=== PATIENT | male | born 1990 | race Caucasian/White ===

== ENCOUNTER 2017-06-16 12:00 | Emergency (ER) | payer OTHER ==
[2017-06-16] MEDS ORDERED: NS 1,000 ML IV ONE ×2 (12:15→16:20)
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
[2017-06-16] MEDS ORDERED: fentaNYL 100 MCG/2 ML INJ ONE (14:09)
[2017-06-16] MEDS ORDERED: fentaNYL 100 MCG/2 ML INJ IVP ONE (14:10)
[2017-06-16 15:31] VITALS: TEMP 98.2
[2017-06-16 17:57] VITALS: BP 121/82; PULSE 66; RESP 17; O2SAT 96
== END 2017-06-16 18:59 | disposition home or self-care (01) ==
PROC: 0PSLXZZ Reposition Left Ulna, External Approach (ICD-10-PCS; principal; 2017-06-16)
DX: S02.82XA Fracture of other specified skull and facial bones, left side, initial encounter for closed fracture (principal); S52.202A Unspecified fracture of shaft of left ulna, initial encounter for closed fracture; V19.3XXA Pedal cyclist (driver) (passenger) injured in unspecified nontraffic accident, initial encounter; Y92.410 Unspecified street and highway as the place of occurrence of the external cause; Y93.55 Activity, bike riding; E86.9 Volume depletion, unspecified
CPT/HCPCS: 96374; J3010

== ENCOUNTER 2017-06-30 14:05 | Day surgery (SDC) | payer OTHER ==
[2017-06-30] MEDS ORDERED: ceFAZolin 2 GM/SWFI 2 GM/20 ML SYR IVP ONE (14:07)
[2017-06-30] MEDS ORDERED: LR 1,000 ML IV ONE (14:35)
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
[2017-06-30] MEDS ORDERED: MIDAZOLAM 2 MG/2 ML VIAL IVP ONE (14:44)
[2017-06-30] MEDS ORDERED: fentaNYL 250 MCG/5 ML INJ ONE (14:50)
[2017-06-30] MEDS ORDERED: PROPOFOL 200 MG/20 ML VIAL ONE (14:50)
[2017-06-30] MEDS ORDERED: ROCURONIUM 50 MG/5 ML VIAL ONE (14:51)
[2017-06-30] MEDS ORDERED: DEXAMETHASONE 4 MG/ML VIAL ONE ×2 (14:51)
[2017-06-30] MEDS ORDERED: BUPIVACAINE 0.5% 30 ML SDV ONE (15:14)
--- NOTE | 2017-06-30 15:32 | PDHPUP ---
History & Physical Update H&P update statement: This history and physical update is based on an assessment of the patient which was completed after admission or registration (within 24 hours), but prior to the surgery/procedure. H&P update: H&P reviewed & patient examined, no change in patient's condition since H&P completed
[2017-06-30] MEDS ORDERED: PHENYLEPHRINE HCL 100 MCG/ML SYR ONE (16:32)
[2017-06-30] MEDS ORDERED: ONDANSETRON 4 MG/2 ML VIAL ONE (18:23)
[2017-06-30] MEDS ORDERED: SUGAMMADEX SODIUM 200 MG/2 ML VIAL IVP ONE (18:43)
[2017-06-30] MEDS ORDERED: fentaNYL 100 MCG/2 ML INJ IVP PRN (18:52)
[2017-06-30] MEDS ORDERED: NALOXONE HCL 0.4 MG/ML INJ IVP PRN (18:52)
[2017-06-30] MEDS ORDERED: fentaNYL 100 MCG/2 ML INJ ONE ×2 (19:02→19:49)
[2017-06-30] MEDS ORDERED: HYDROCODONE/APAP 5/325 TAB PO PRN (20:31)
--- NOTE | 2017-06-30 20:34 | POSTANESTH ---
Post Anesthetic Evaluation Cardiovascular Status: Normal, Stable Respiratory Status: Normal, Stable Level of Consciousness/Mental Status: Can Participate in Eval Pain Control: Adequate, Prn Tx Ordered Nausea/Vomiting Control: Adequate, Prn Tx Ordered Complications Possibly Related to Anesthesia: None Noted
[2017-06-30] MEDS ORDERED: HYDROCODONE/APAP 5/325 TAB ONE (20:38)
[2017-06-30 21:18] VITALS: PULSE 86
[2017-06-30 21:20] VITALS: RESP 20
[2017-06-30 21:47] VITALS: BP 132/81; O2SAT 95
[2017-06-30 21:56] VITALS: TEMP 98.4
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
== END 2017-06-30 21:45 | disposition home or self-care (01) ==
LOC: FSGY 14:05
PROVIDERS: ATTEND Orthopaedic Surgery Hand Surgery
PROC: 0PSL0ZZ Reposition Left Ulna, Open Approach (ICD-10-PCS; principal; 2017-06-30 15:15)
PROC: 0PSL04Z Reposition Left Ulna with Internal Fixation Device, Open Approach (ICD-10-PCS; principal; 2017-06-30 15:15)
DX: S52.292A Other fracture of shaft of left ulna, initial encounter for closed fracture (principal); S52.612A Displaced fracture of left ulna styloid process, initial encounter for closed fracture; S62.112A Displaced fracture of triquetrum [cuneiform] bone, left wrist, initial encounter for closed fracture; S62.175A Nondisplaced fracture of trapezium [larger multangular], left wrist, initial encounter for closed fracture; V18.0XXA Pedal cycle driver injured in noncollision transport accident in nontraffic accident, initial encounter; Y93.55 Activity, bike riding
CPT/HCPCS: C1713; J0690; J1100; J2250; J2370; J2405; J2704; J3010

== ENCOUNTER → 2017-07-14 | Outpatient (CLI) | payer OTHER | LOC: BMCIMAGING 11:08 | PROVIDERS: ATTEND Orthopaedic Surgery Hand Surgery | DX: S62.175D Nondisplaced fracture of trapezium [larger multangular], left wrist, subsequent encounter for fracture with routine healing (principal) ==

== ENCOUNTER → 2017-07-28 | Outpatient (CLI) | payer OTHER | LOC: BMCIMAGING 11:05 | PROVIDERS: ATTEND Orthopaedic Surgery Hand Surgery | DX: S52.292D Other fracture of shaft of left ulna, subsequent encounter for closed fracture with routine healing (principal); S62.175D Nondisplaced fracture of trapezium [larger multangular], left wrist, subsequent encounter for fracture with routine healing ==

== ENCOUNTER → 2017-08-11 | Outpatient (CLI) | payer OTHER | LOC: BMCIMAGING 13:25 | PROVIDERS: ATTEND Orthopaedic Surgery Hand Surgery | DX: S62.175D Nondisplaced fracture of trapezium [larger multangular], left wrist, subsequent encounter for fracture with routine healing (principal); S62.112D Displaced fracture of triquetrum [cuneiform] bone, left wrist, subsequent encounter for fracture with routine healing ==

== ENCOUNTER → 2017-09-07 | Outpatient (CLI) | payer OTHER | LOC: BMCIMAGING 10:13 | PROVIDERS: ATTEND Orthopaedic Surgery Hand Surgery | DX: S52.692D Other fracture of lower end of left ulna, subsequent encounter for closed fracture with routine healing (principal) ==